=== PATIENT | female | born 1960 | race Caucasian/White ===

== ENCOUNTER 2017-02-27 10:15 | Inpatient (IN) | payer OTHER ==
[2017-02-27] MEDS ORDERED: ZITHROMAX INJ 500 MG VIAL 250 MG in NS 250 ML IV 250 ML IV SCH (12:20)
[2017-02-27] MEDS: DUONEB 0.5 MG/3 MG NEB SCH ×3 (12:27→20:55)
[2017-02-27 12:50] LABS: ABG BASE EXCESS 4.1 mmol/L (-2.0-2.0); ABG HCO3 29.2 mmol/L (22-26)
[2017-02-27 12:51] LABS: ABG ALLEN TEST POS
[2017-02-27] MEDS: SOLU-Medrol 40 MG VIAL IVP SCH ×2 (13:19→21:20)
[2017-02-27] MEDS: ROCEPHIN VIAL 1 GM 1 GM in NS 50 ML IV + SPIKE MINIBAG* 50 ML IV SCH (13:20)
[2017-02-27] MEDS: ZITHROMAX INJ 500 MG VIAL 250 MG in NS 250 ML IV 250 ML IV SCH (13:20)
[2017-02-27] MEDS: NS 500 ML IV 500 ML IV PRN (13:20)
[2017-02-27 13:22] LABS: BASOPHILS # (AUTO) 0.1 X10^3/uL (0.0-0.1); BASOPHILS % (AUTO) 0.3 % (0.2-1.0); EOSINOPHILS % (AUTO) 0.1 % (0.9-2.9); HEMATOCRIT 34.1 % (36.0-47.0); HEMOGLOBIN 11.8 g/dL (12.0-16.0); LYMPHOCYTES # (AUTO) 1.3 X10^3/uL (1.3-2.9); MEAN CORPUSCULAR HEMOGLOBIN 29.5 pg (27.0-34.0); MEAN CORPUSCULAR HGB CONC 34.5 g/dL (33.0-35.0); MEAN CORPUSCULAR VOLUME 85.7 fL (80.0-100.0); MEAN PLATELET VOLUME 8.2 fL (7.4-11.0); MONOCYTES # (AUTO) 1.2 x10^3/uL (0.3-0.8); MONOCYTES % (AUTO) 7.7 % (0.0-13.0); NEUTROPHILS # (AUTO) 13.5 x10^3/uL (2.2-4.8); NEUTROPHILS % (AUTO) 83.9 % (42.0-75.0); PLATELET COUNT 380 X10^3/uL (150.0-450.0); RED BLOOD COUNT 3.98 X10^6/uL (3.5-5.4); RED CELL DISTRIBUTION WIDTH 13.5 % (11.6-16.5); WHITE BLOOD COUNT 16.1 X10^3/uL (3.6-10.0)
[2017-02-27 13:30] LABS: BILIRUBIN,URINE NEGATIVE (NEGATIVE); BLOOD/HEMOGLOBIN,URINE NEGATIVE (NEGATIVE); GLUCOSE, URINE 2+ (NEGATIVE); KETONES,URINE 1+ (NEGATIVE); LEUKOCYTE ESTERASE ,URINE 1+ (NEGATIVE); NITRITES,URINE NEGATIVE (NEGATIVE); PROTEIN,URINE 2+ (NEGATIVE); UROBILINOGEN,URINE 1+ (NORMAL)
[2017-02-27 13:32] LABS: SODIUM 142 mmol/L (136-145)
[2017-02-27 13:39] LABS: BLOOD UREA NITROGEN 17 mg/dL (7-18); CALCIUM 9.4 mg/dL (8.5-10.1); CARBON DIOXIDE 28.3 mmol/L (21-32); CHLORIDE 102 mmol/L (98-107); COR NA(FOR HYPERGLY) 143 mmol/L (136-145); CREATININE 0.84 mg/dL (0.55-1.02); eGFR BLACK RACES > 60 (>60); eGFR NON BLACK RACES > 60 (>60)
[2017-02-27 13:49] LABS: APPEARANCE,URINE HAZY (CLEAR); COLOR,URINE YELLOW (YELLOW)
[2017-02-27 13:50] LABS: BACTERIA,URINE NEGATIVE /HPF (NEGATIVE); RBC,URINE RARE /HPF (NEGATIVE); SQUAMOUS EPITHELIAL CELL,UR MANY /HPF (NEGATIVE)
[2017-02-27 13:53] LABS: AMORPHOUS SEDIMENT,UR 2+ /HPF (NEGATIVE)
[2017-02-27 13:54] LABS: MUCUS,URINE FEW /HPF (NEGATIVE)
[2017-02-27 13:55] LABS: COARSE GRANULAR CASTS,URINE FEW /HPF (NEGATIVE)
--- NOTE | 2017-02-27 14:26 | RAD ---
HISTORY: Cough. Prior history of COPD, asthma and CHF. Study: Two-view chest Comparison: No priors Findings: Trachea is midline. The heart size is normal. There is hyperinflation of the lungs with increased int erstitial markings. Findings have the appearance of COPD. A component of very mild superimposed CHF i s not reliably excluded. No dense consolidation, pleural fluid or pneumothorax is seen. Osseous struc tures are intact. IMPRESSION: Findings having the appearance of COPD. I suspect a component of very mild superimposed CHF may be pr esent. Reported By:
[2017-02-27 14:46] VITALS: BMI 30.9
[2017-02-27] MEDS: TUSSIONEX PENNKINETIC SUSP PO PRN (16:40)
[2017-02-27] MEDS: REQUIP PO SCH (21:20)
[2017-02-27] MEDS: XANAX PO PRN (21:20)
[2017-02-28] MEDS: SOLU-Medrol 40 MG VIAL IVP SCH ×3 (05:01→21:24)
[2017-02-28] MEDS: XOPENEX 1.25 MG/3 ML NEBULE NEB SCH ×5 (05:15→20:39)
[2017-02-28] MEDS: Atrovent NEB TX 0.02% NEB SCH ×5 (05:15→20:39)
[2017-02-28 05:50] LABS: BASOPHILS # (AUTO) 0.1 X10^3/uL (0.0-0.1); BASOPHILS % (AUTO) 0.4 % (0.2-1.0); HEMATOCRIT 33.3 % (36.0-47.0); HEMOGLOBIN 11.3 g/dL (12.0-16.0); LYMPHOCYTES # (AUTO) 1.2 X10^3/uL (1.3-2.9); LYMPHOCYTES % (AUTO) 7.7 % (21.0-51.0); MEAN CORPUSCULAR HEMOGLOBIN 29.4 pg (27.0-34.0); MEAN CORPUSCULAR VOLUME 86.4 fL (80.0-100.0); MEAN PLATELET VOLUME 8.4 fL (7.4-11.0); MONOCYTES # (AUTO) 0.5 x10^3/uL (0.3-0.8); MONOCYTES % (AUTO) 3.2 % (0.0-13.0); NEUTROPHILS # (AUTO) 13.4 x10^3/uL (2.2-4.8); NEUTROPHILS % (AUTO) 88.7 % (42.0-75.0); PLATELET COUNT 391 X10^3/uL (150.0-450.0); RED BLOOD COUNT 3.86 X10^6/uL (3.5-5.4); RED CELL DISTRIBUTION WIDTH 13.5 % (11.6-16.5); WHITE BLOOD COUNT 15.1 X10^3/uL (3.6-10.0)
[2017-02-28 06:47] LABS: ALANINE AMINOTRANSFERASE 20 Units/L (12-78); ALBUMIN 3.2 g/dL (3.4-5.0); ALKALINE PHOSPHATASE 113 Units/L (46-116); ASPARTATE AMINO TRANSFERASE 15 Units/L (15-37); BLOOD UREA NITROGEN 15 mg/dL (7-18); CARBON DIOXIDE 27.7 mmol/L (21-32); CHLORIDE 103 mmol/L (98-107); COR CA(FOR HYPOALB) 9.6 mg/dL (8.5-10.1); COR NA(FOR HYPERGLY) 143 mmol/L (136-145); CREATININE 0.77 mg/dL (0.55-1.02); SODIUM 141 mmol/L (136-145); TOTAL PROTEIN 6.9 g/dL (6.4-8.2); eGFR BLACK RACES > 60 (>60); eGFR NON BLACK RACES > 60 (>60)
[2017-02-28] MEDS ORDERED: ROCEPHIN 1 GM IV PREMIX 1 GM/50 ML IV.SOLN. IV ONE (08:58)
[2017-02-28] MEDS: ROCEPHIN VIAL 1 GM 1 GM in NS 50 ML IV + SPIKE MINIBAG* 50 ML IV SCH (10:06)
[2017-02-28] MEDS: ZITHROMAX INJ 500 MG VIAL 250 MG in NS 250 ML IV 250 ML IV SCH (13:39)
[2017-02-28] MEDS ORDERED: PATIENT'S HOME MEDICATION (Benzonatate [Benzonatate] 1 CAP) PO PRN (13:40)
[2017-02-28] MEDS ORDERED: PATIENT'S HOME MEDICATION (Acetaminophen With Codeine [Tylenol W/Codeine #4 (300 Mg/60 Mg) PO SCH (13:45)
[2017-02-28] MEDS: TUSSIONEX PENNKINETIC SUSP PO PRN (13:49)
[2017-02-28] MEDS: XANAX PO PRN ×2 (13:49→21:36)
[2017-02-28] MEDS ORDERED: PATIENT'S HOME MEDICATION (Alprazolam [Alprazolam] 1 TAB) PO SCH (14:00)
[2017-02-28] MEDS: LIORESAL PO SCH ×2 (14:26→21:36)
[2017-02-28] MEDS ORDERED: DUONEB 0.5 MG/3 MG NEB SCH (17:00)
[2017-02-28] MEDS: TYLENOL #3 TAB (W/CODEINE) PO PRN (19:29)
[2017-02-28] MEDS: PULMICORT NEB TX 0.5 MG NEB SCH (20:39)
[2017-02-28] MEDS ORDERED: ROPINIROLE HCL PO SCH (21:00)
[2017-02-28] MEDS ORDERED: PATIENT'S HOME MEDICATION (Budesonide-Formoterol 2 PUFF) INH SCH (21:00)
[2017-02-28] MEDS: REQUIP PO SCH (21:36)
[2017-02-28] MEDS: VARENICLINE TARTRATE PO SCH (21:51)
[2017-02-28] MEDS ORDERED: XANAX PO SCH (22:00)
[2017-03-01] MEDS: XOPENEX 1.25 MG/3 ML NEBULE NEB SCH ×5 (04:10→21:08)
[2017-03-01] MEDS: TYLENOL #3 TAB (W/CODEINE) PO PRN ×3 (04:20→21:47)
[2017-03-01] MEDS ORDERED: MAALOX or MYLANTA PO PRN (04:28)
[2017-03-01] MEDS: XANAX PO PRN ×3 (05:43→21:58)
[2017-03-01] MEDS: LIORESAL PO SCH ×3 (05:43→21:46)
[2017-03-01] MEDS: SOLU-Medrol 40 MG VIAL IVP SCH ×3 (05:43→21:47)
[2017-03-01 06:09] LABS: BASOPHILS % (AUTO) 0.1 % (0.2-1.0); EOSINOPHILS % (AUTO) 0.1 % (0.9-2.9); HEMATOCRIT 32.1 % (36.0-47.0); HEMOGLOBIN 10.9 g/dL (12.0-16.0); LYMPHOCYTES # (AUTO) 1.2 X10^3/uL (1.3-2.9); LYMPHOCYTES % (AUTO) 8.3 % (21.0-51.0); MEAN CORPUSCULAR HEMOGLOBIN 29.3 pg (27.0-34.0); MEAN CORPUSCULAR VOLUME 86.3 fL (80.0-100.0); MEAN PLATELET VOLUME 8.4 fL (7.4-11.0); MONOCYTES # (AUTO) 0.7 x10^3/uL (0.3-0.8); MONOCYTES % (AUTO) 4.7 % (0.0-13.0); NEUTROPHILS # (AUTO) 12.7 x10^3/uL (2.2-4.8); NEUTROPHILS % (AUTO) 86.8 % (42.0-75.0); PLATELET COUNT 373 X10^3/uL (150.0-450.0); RED BLOOD COUNT 3.72 X10^6/uL (3.5-5.4); RED CELL DISTRIBUTION WIDTH 13.6 % (11.6-16.5); WHITE BLOOD COUNT 14.6 X10^3/uL (3.6-10.0)
[2017-03-01 06:45] LABS: ALANINE AMINOTRANSFERASE 20 Units/L (12-78); ALBUMIN 2.9 g/dL (3.4-5.0); ALKALINE PHOSPHATASE 102 Units/L (46-116); ASPARTATE AMINO TRANSFERASE 15 Units/L (15-37); BLOOD UREA NITROGEN 18 mg/dL (7-18); CALCIUM 8.9 mg/dL (8.5-10.1); CARBON DIOXIDE 29.8 mmol/L (21-32); CHLORIDE 103 mmol/L (98-107); COR CA(FOR HYPOALB) 9.8 mg/dL (8.5-10.1); COR NA(FOR HYPERGLY) 144 mmol/L (136-145); CREATININE 0.69 mg/dL (0.55-1.02); SODIUM 143 mmol/L (136-145); TOTAL PROTEIN 6.6 g/dL (6.4-8.2); eGFR BLACK RACES > 60 (>60); eGFR NON BLACK RACES > 60 (>60)
[2017-03-01 06:53] LABS: BAND NEUTROPHILS % 2 % (0-10); PLATELET MORPHOLOGY COMMENT NORMAL (NORMAL)
[2017-03-01] MEDS: CELEXA PO SCH (08:44)
[2017-03-01] MEDS: ROCEPHIN 1 GM IV PREMIX 1 GM/50 ML IV.SOLN. IV SCH (08:44)
[2017-03-01] MEDS: TOPROL XL PO SCH (08:44)
[2017-03-01] MEDS: PROTONIX TAB 40 MG PO SCH (08:44)
[2017-03-01] MEDS: TUSSIONEX PENNKINETIC SUSP PO PRN (08:45)
[2017-03-01] MEDS: VARENICLINE TARTRATE PO SCH ×2 (08:51→21:48)
[2017-03-01] MEDS: Atrovent NEB TX 0.02% NEB SCH ×4 (09:08→21:09)
[2017-03-01] MEDS: PULMICORT NEB TX 0.5 MG NEB SCH ×2 (09:08→21:08)
[2017-03-01] MEDS ORDERED: PULMICORT NEB TX 0.5 MG NEB SCH (13:30)
[2017-03-01] MEDS: ZITHROMAX INJ 500 MG VIAL 250 MG in NS 250 ML IV 250 ML IV SCH (14:00)
[2017-03-01] MEDS: BROVANA IN SCH ×2 (14:52→21:08)
[2017-03-01] MEDS: REQUIP PO SCH (21:46)
[2017-03-02] MEDS: XOPENEX 1.25 MG/3 ML NEBULE NEB SCH ×5 (04:05→20:31)
[2017-03-02] MEDS: Atrovent NEB TX 0.02% NEB SCH ×5 (04:05→20:31)
[2017-03-02 05:41] LABS: ALANINE AMINOTRANSFERASE 21 Units/L (12-78); ALBUMIN 2.7 g/dL (3.4-5.0); ALKALINE PHOSPHATASE 107 Units/L (46-116); ASPARTATE AMINO TRANSFERASE 10 Units/L (15-37); BLOOD UREA NITROGEN 20 mg/dL (7-18); CALCIUM 8.5 mg/dL (8.5-10.1); CARBON DIOXIDE 29.5 mmol/L (21-32); CHLORIDE 106 mmol/L (98-107); COR CA(FOR HYPOALB) 9.5 mg/dL (8.5-10.1); COR NA(FOR HYPERGLY) 146 mmol/L (136-145); CREATININE 0.65 mg/dL (0.55-1.02); SODIUM 144 mmol/L (136-145); TOTAL PROTEIN 6.1 g/dL (6.4-8.2); eGFR BLACK RACES > 60 (>60); eGFR NON BLACK RACES > 60 (>60)
[2017-03-02 05:43] LABS: BASOPHILS % (AUTO) 0.2 % (0.2-1.0); EOSINOPHILS % (AUTO) 0.1 % (0.9-2.9); HEMATOCRIT 31.8 % (36.0-47.0); HEMOGLOBIN 10.7 g/dL (12.0-16.0); LYMPHOCYTES # (AUTO) 1.3 X10^3/uL (1.3-2.9); LYMPHOCYTES % (AUTO) 8.7 % (21.0-51.0); MEAN CORPUSCULAR HEMOGLOBIN 29.4 pg (27.0-34.0); MEAN CORPUSCULAR HGB CONC 33.8 g/dL (33.0-35.0); MEAN CORPUSCULAR VOLUME 87.2 fL (80.0-100.0); MEAN PLATELET VOLUME 8.3 fL (7.4-11.0); MONOCYTES # (AUTO) 1.2 x10^3/uL (0.3-0.8); NEUTROPHILS # (AUTO) 12.1 x10^3/uL (2.2-4.8); PLATELET COUNT 367 X10^3/uL (150.0-450.0); RED BLOOD COUNT 3.65 X10^6/uL (3.5-5.4); RED CELL DISTRIBUTION WIDTH 13.7 % (11.6-16.5); WHITE BLOOD COUNT 14.6 X10^3/uL (3.6-10.0)
[2017-03-02] MEDS: LIORESAL PO SCH ×3 (05:56→21:59)
[2017-03-02] MEDS: XANAX PO PRN ×3 (05:56→22:02)
[2017-03-02] MEDS: SOLU-Medrol 40 MG VIAL IVP SCH (05:56)
[2017-03-02 06:31] LABS: BAND NEUTROPHILS % 2 % (0-10)
[2017-03-02 06:32] LABS: PLATELET MORPHOLOGY COMMENT NORMAL (NORMAL)
[2017-03-02] MEDS: TESSALON PERLES PO PRN ×2 (07:49→15:04)
[2017-03-02] MEDS: ROCEPHIN 1 GM IV PREMIX 1 GM/50 ML IV.SOLN. IV SCH (08:00)
[2017-03-02] MEDS: PROTONIX TAB 40 MG PO SCH (08:00)
[2017-03-02] MEDS: TOPROL XL PO SCH (08:00)
[2017-03-02] MEDS: CELEXA PO SCH (08:00)
[2017-03-02] MEDS: BROVANA IN SCH ×2 (09:19→20:31)
[2017-03-02] MEDS: PULMICORT NEB TX 0.5 MG NEB SCH ×2 (09:19→20:30)
[2017-03-02] MEDS: VARENICLINE TARTRATE PO SCH ×2 (10:12→21:59)
[2017-03-02] MEDS: ZITHROMAX INJ 500 MG VIAL 250 MG in NS 250 ML IV 250 ML IV SCH (14:14)
[2017-03-02] MEDS: NYSTATIN SUSP PO SCH (21:58)
[2017-03-02] MEDS: REQUIP PO SCH (21:59)
[2017-03-02] MEDS: TUSSIONEX PENNKINETIC SUSP PO PRN (23:02)
[2017-03-03] MEDS: LIORESAL PO SCH ×3 (06:15→21:12)
[2017-03-03 07:11] LABS: BLOOD UREA NITROGEN 21 mg/dL (7-18); CALCIUM 8.3 mg/dL (8.5-10.1); CARBON DIOXIDE 31.7 mmol/L (21-32); CHLORIDE 104 mmol/L (98-107); CREATININE 0.77 mg/dL (0.55-1.02); SODIUM 145 mmol/L (136-145); eGFR BLACK RACES > 60 (>60); eGFR NON BLACK RACES > 60 (>60)
[2017-03-03 07:26] LABS: BASOPHILS # (AUTO) 0.1 X10^3/uL (0.0-0.1); BASOPHILS % (AUTO) 0.3 % (0.2-1.0); EOSINOPHILS # (AUTO) 0.2 x10^3/uL (0.0-0.2); HEMATOCRIT 31.6 % (36.0-47.0); HEMOGLOBIN 10.7 g/dL (12.0-16.0); LYMPHOCYTES # (AUTO) 3.2 X10^3/uL (1.3-2.9); MEAN CORPUSCULAR HEMOGLOBIN 29.4 pg (27.0-34.0); MEAN CORPUSCULAR HGB CONC 33.7 g/dL (33.0-35.0); MEAN CORPUSCULAR VOLUME 87.1 fL (80.0-100.0); MEAN PLATELET VOLUME 8.1 fL (7.4-11.0); MONOCYTES # (AUTO) 1.9 x10^3/uL (0.3-0.8); MONOCYTES % (AUTO) 11.1 % (0.0-13.0); NEUTROPHILS # (AUTO) 11.5 x10^3/uL (2.2-4.8); NEUTROPHILS % (AUTO) 68.6 % (42.0-75.0); PLATELET COUNT 348 X10^3/uL (150.0-450.0); RED BLOOD COUNT 3.63 X10^6/uL (3.5-5.4); RED CELL DISTRIBUTION WIDTH 13.9 % (11.6-16.5); WHITE BLOOD COUNT 16.7 X10^3/uL (3.6-10.0)
[2017-03-03 08:05] LABS: BAND NEUTROPHILS % 1 % (0-10)
[2017-03-03 08:06] LABS: PLATELET MORPHOLOGY COMMENT NORMAL (NORMAL)
[2017-03-03 08:29] LABS: ALANINE AMINOTRANSFERASE 39 Units/L (12-78); ALBUMIN 2.8 g/dL (3.4-5.0); ALKALINE PHOSPHATASE 95 Units/L (46-116); ASPARTATE AMINO TRANSFERASE 27 Units/L (15-37); COR CA(FOR HYPOALB) 9.3 mg/dL (8.5-10.1); TOTAL PROTEIN 5.7 g/dL (6.4-8.2)
[2017-03-03] MEDS: XOPENEX 1.25 MG/3 ML NEBULE NEB SCH ×4 (08:55→21:33)
[2017-03-03] MEDS: BROVANA IN SCH ×2 (08:55→21:33)
[2017-03-03] MEDS: PULMICORT NEB TX 0.5 MG NEB SCH ×2 (08:55→21:33)
[2017-03-03] MEDS: Atrovent NEB TX 0.02% NEB SCH ×4 (08:56→21:33)
[2017-03-03] MEDS: PROTONIX TAB 40 MG PO SCH (09:17)
[2017-03-03] MEDS: TOPROL XL PO SCH (09:17)
[2017-03-03] MEDS: CELEXA PO SCH (09:17)
[2017-03-03] MEDS: ROCEPHIN 1 GM IV PREMIX 1 GM/50 ML IV.SOLN. IV SCH (09:17)
[2017-03-03] MEDS: NYSTATIN SUSP PO SCH ×4 (09:17→21:12)
[2017-03-03] MEDS: VARENICLINE TARTRATE PO SCH ×2 (09:30→21:12)
[2017-03-03] MEDS: ZITHROMAX INJ 500 MG VIAL 250 MG in NS 250 ML IV 250 ML IV SCH (15:35)
[2017-03-03] MEDS: XANAX PO PRN (15:37)
[2017-03-03] MEDS ORDERED: MAG-OX TAB PO PRN (17:36)
[2017-03-03] MEDS ORDERED: POTASSIUM CHLORIDE LIQ 20 MEQ UDC PO PRN (17:36)
[2017-03-03] MEDS ORDERED: K-RIDER 10 MEQ/NS 100 ML 10 MEQ/100 ML BAG IV PRN (17:36)
[2017-03-03] MEDS ORDERED: MAGNESIUM SULFATE 1 GM/100 mL PREMIX 1 GM/100 ML BAG IV PRN (17:36)
[2017-03-03] MEDS ORDERED: K-LYTE EFFERVESCENT PO PRN (17:36)
[2017-03-03] MEDS ORDERED: POTASSIUM CHL 40 MEQ/NS 0.45% 500 ML IV PRN ×2 (17:49→18:00)
[2017-03-03] MEDS ORDERED: POTASSIUM CHL 60 MEQ/NS 0.45% 500 ML IV PRN (17:49)
[2017-03-03] MEDS ORDERED: POTASSIUM CHL 60 MEQ/NS 0.45% 500 ML IV NR (18:00)
[2017-03-03] MEDS: REQUIP PO SCH (21:11)
[2017-03-04 04:33] LABS: BASOPHILS # (AUTO) 0.1 X10^3/uL (0.0-0.1); BASOPHILS % (AUTO) 0.4 % (0.2-1.0); EOSINOPHILS # (AUTO) 1.1 x10^3/uL (0.0-0.2); EOSINOPHILS % (AUTO) 7.3 % (0.9-2.9); HEMATOCRIT 30.9 % (36.0-47.0); HEMOGLOBIN 10.4 g/dL (12.0-16.0); LYMPHOCYTES # (AUTO) 3.5 X10^3/uL (1.3-2.9); LYMPHOCYTES % (AUTO) 23.4 % (21.0-51.0); MEAN CORPUSCULAR HEMOGLOBIN 29.5 pg (27.0-34.0); MEAN CORPUSCULAR HGB CONC 33.9 g/dL (33.0-35.0); MONOCYTES # (AUTO) 1.5 x10^3/uL (0.3-0.8); MONOCYTES % (AUTO) 9.8 % (0.0-13.0); NEUTROPHILS # (AUTO) 8.7 x10^3/uL (2.2-4.8); NEUTROPHILS % (AUTO) 59.1 % (42.0-75.0); PLATELET COUNT 337 X10^3/uL (150.0-450.0); RED BLOOD COUNT 3.55 X10^6/uL (3.5-5.4); RED CELL DISTRIBUTION WIDTH 13.7 % (11.6-16.5); WHITE BLOOD COUNT 14.8 X10^3/uL (3.6-10.0)
[2017-03-04 04:51] LABS: ALANINE AMINOTRANSFERASE 44 Units/L (12-78); ALBUMIN 2.6 g/dL (3.4-5.0); ALKALINE PHOSPHATASE 101 Units/L (46-116); ASPARTATE AMINO TRANSFERASE 30 Units/L (15-37); BLOOD UREA NITROGEN 18 mg/dL (7-18); CALCIUM 7.2 mg/dL (8.5-10.1); CARBON DIOXIDE 32.9 mmol/L (21-32); CHLORIDE 106 mmol/L (98-107); COR CA(FOR HYPOALB) 8.3 mg/dL (8.5-10.1); CREATININE 0.84 mg/dL (0.55-1.02); SODIUM 146 mmol/L (136-145); TOTAL PROTEIN 5.5 g/dL (6.4-8.2); eGFR BLACK RACES > 60 (>60); eGFR NON BLACK RACES > 60 (>60)
[2017-03-04] MEDS: LIORESAL PO SCH ×3 (05:42→21:27)
[2017-03-04] MEDS: TUSSIONEX PENNKINETIC SUSP PO PRN (05:42)
[2017-03-04 06:09] LABS: BAND NEUTROPHILS % 3 % (0-10)
[2017-03-04 06:10] LABS: PLATELET MORPHOLOGY COMMENT NORMAL (NORMAL)
[2017-03-04] MEDS: XOPENEX 1.25 MG/3 ML NEBULE NEB SCH ×5 (06:10→20:38)
[2017-03-04] MEDS: Atrovent NEB TX 0.02% NEB SCH ×5 (06:10→20:38)
--- NOTE | 2017-03-04 07:02 | RAD ---
Examination: Portable AP chest History: COPD Comparison reference: 02/27/2017 Findings: Continued normal heart size with slight pulmonary hyperaeration. The pulmonary vascularity is now within normal limits. There is no evidence for inflammatory infiltrate, pulmonary edema or ple ural fluid. Impression: No acute process now identified. Reported By:
[2017-03-04] MEDS: BROVANA IN SCH ×2 (08:19→20:38)
[2017-03-04] MEDS: PULMICORT NEB TX 0.5 MG NEB SCH ×2 (08:20→20:38)
[2017-03-04] MEDS: CELEXA PO SCH (10:03)
[2017-03-04] MEDS: ROCEPHIN 1 GM IV PREMIX 1 GM/50 ML IV.SOLN. IV SCH (10:03)
[2017-03-04] MEDS: NYSTATIN SUSP PO SCH ×4 (10:03→21:27)
[2017-03-04] MEDS: TOPROL XL PO SCH (10:04)
[2017-03-04] MEDS: VARENICLINE TARTRATE PO SCH ×2 (10:04→21:27)
[2017-03-04] MEDS: PROTONIX TAB 40 MG PO SCH (10:04)
[2017-03-04] MEDS: ZITHROMAX INJ 500 MG VIAL 250 MG in NS 250 ML IV 250 ML IV SCH (13:30)
[2017-03-04 14:21] LABS: ABG BASE EXCESS 11.6 mmol/L (-2.0-2.0); ABG HCO3 37.1 mmol/L (22-26)
[2017-03-04 14:22] LABS: ABG ALLEN TEST POS; FRACTIONATED INSPIRED OXYGEN 21
[2017-03-04] MEDS: REQUIP PO SCH (21:27)
[2017-03-05 04:26] LABS: BASOPHILS % (AUTO) 0.2 % (0.2-1.0); EOSINOPHILS # (AUTO) 1.2 x10^3/uL (0.0-0.2); EOSINOPHILS % (AUTO) 7.7 % (0.9-2.9); HEMATOCRIT 33.2 % (36.0-47.0); HEMOGLOBIN 11.2 g/dL (12.0-16.0); LYMPHOCYTES # (AUTO) 2.8 X10^3/uL (1.3-2.9); LYMPHOCYTES % (AUTO) 18.5 % (21.0-51.0); MEAN CORPUSCULAR HEMOGLOBIN 29.2 pg (27.0-34.0); MEAN CORPUSCULAR HGB CONC 33.6 g/dL (33.0-35.0); MEAN CORPUSCULAR VOLUME 87.1 fL (80.0-100.0); MONOCYTES # (AUTO) 1.6 x10^3/uL (0.3-0.8); MONOCYTES % (AUTO) 10.3 % (0.0-13.0); NEUTROPHILS # (AUTO) 9.7 x10^3/uL (2.2-4.8); NEUTROPHILS % (AUTO) 63.3 % (42.0-75.0); PLATELET COUNT 330 X10^3/uL (150.0-450.0); RED BLOOD COUNT 3.82 X10^6/uL (3.5-5.4); RED CELL DISTRIBUTION WIDTH 14.1 % (11.6-16.5); WHITE BLOOD COUNT 15.3 X10^3/uL (3.6-10.0)
[2017-03-05 04:30] LABS: BLOOD UREA NITROGEN 13 mg/dL (7-18); CALCIUM 8.5 mg/dL (8.5-10.1); CARBON DIOXIDE 38.1 mmol/L (21-32); CHLORIDE 99 mmol/L (98-107); CREATININE 0.75 mg/dL (0.55-1.02); SODIUM 140 mmol/L (136-145); eGFR BLACK RACES > 60 (>60); eGFR NON BLACK RACES > 60 (>60)
[2017-03-05 04:56] LABS: BAND NEUTROPHILS % 6 % (0-10); PLATELET MORPHOLOGY COMMENT NORMAL (NORMAL)
[2017-03-05 05:01] LABS: ALANINE AMINOTRANSFERASE 152 Units/L (12-78); ALBUMIN 2.8 g/dL (3.4-5.0); ALKALINE PHOSPHATASE 103 Units/L (46-116); ASPARTATE AMINO TRANSFERASE 99 Units/L (15-37); COR CA(FOR HYPOALB) 9.5 mg/dL (8.5-10.1); TOTAL PROTEIN 6.1 g/dL (6.4-8.2)
[2017-03-05] MEDS: Atrovent NEB TX 0.02% NEB SCH ×5 (05:03→20:39)
[2017-03-05] MEDS: XOPENEX 1.25 MG/3 ML NEBULE NEB SCH ×5 (05:03→20:39)
[2017-03-05] MEDS: LIORESAL PO SCH ×3 (05:26→21:58)
[2017-03-05] MEDS: TYLENOL #3 TAB (W/CODEINE) PO PRN ×2 (07:38→20:38)
--- NOTE | 2017-03-05 07:54 | CT ---
HISTORY: Shortness of breath Study: CTA chest with contrast for pulmonary embolus Comparison: None Technique: Axial post-contrast images with coronal, sagittal, and three-dimensional maximum intensity projection images obtained in evaluated. Dose reduction procedures were used with mA/kv adjusted for body size. Findings: There is no evidence for acute pulmonary thromboembolic disease. Examination of the mediastinum demon strated no evidence for mediastinal masses, lymphadenopathy, or hilar lymphadenopathy. Mild calcific atherosclerotic changes present in an otherwise normal thoracic aorta. No pleural effusions are ident ified. No chest wall or axillary abnormality is identified. Those portions of the upper abdominal org ans visualized were within normal limits. Examination of the lung hutchinson demonstrate extensive change s of centrilobular emphysema bilaterally involving the upper lobes more prominently in the lower lobe s. Mild peripheral interstitial lung change is identified. No nodules, masses, alveolar infiltrates, areas of consolidation, peribronchial thickening, or bronchiectasis is identified. IMPRESSION: No evidence for acute pulmonary thromboembolic disease Relatively severe centrilobular emphysema with some associated peripheral interstitial lung changes, chronic Reported By:
[2017-03-05] MEDS: CELEXA PO SCH (08:41)
[2017-03-05] MEDS: XANAX PO PRN ×2 (08:41→14:29)
[2017-03-05] MEDS: PROTONIX TAB 40 MG PO SCH (08:42)
[2017-03-05] MEDS: NYSTATIN SUSP PO SCH ×4 (08:42→20:37)
[2017-03-05] MEDS: ROCEPHIN 1 GM IV PREMIX 1 GM/50 ML IV.SOLN. IV SCH (08:42)
[2017-03-05] MEDS: TOPROL XL PO SCH (08:42)
[2017-03-05] MEDS: VARENICLINE TARTRATE PO SCH ×2 (08:44→20:41)
[2017-03-05] MEDS: PULMICORT NEB TX 0.5 MG NEB SCH ×2 (09:50→20:39)
[2017-03-05] MEDS: BROVANA IN SCH ×2 (09:50→20:39)
[2017-03-05] MEDS: ZITHROMAX INJ 500 MG VIAL 250 MG in NS 250 ML IV 250 ML IV SCH (14:29)
[2017-03-05] MEDS: REQUIP PO SCH (20:37)
[2017-03-05] MEDS: TUSSIONEX PENNKINETIC SUSP PO PRN (20:38)
[2017-03-06] MEDS: NS 500 ML IV 500 ML IV PRN (04:31)
[2017-03-06 04:47] LABS: BASOPHILS # (AUTO) 0.1 X10^3/uL (0.0-0.1); BASOPHILS % (AUTO) 0.4 % (0.2-1.0); EOSINOPHILS # (AUTO) 1.1 x10^3/uL (0.0-0.2); EOSINOPHILS % (AUTO) 7.6 % (0.9-2.9); HEMATOCRIT 34.2 % (36.0-47.0); HEMOGLOBIN 11.4 g/dL (12.0-16.0); LYMPHOCYTES # (AUTO) 2.4 X10^3/uL (1.3-2.9); LYMPHOCYTES % (AUTO) 16.1 % (21.0-51.0); MEAN CORPUSCULAR HGB CONC 33.3 g/dL (33.0-35.0); MEAN PLATELET VOLUME 8.1 fL (7.4-11.0); MONOCYTES # (AUTO) 1.5 x10^3/uL (0.3-0.8); MONOCYTES % (AUTO) 9.9 % (0.0-13.0); NEUTROPHILS # (AUTO) 9.8 x10^3/uL (2.2-4.8); PLATELET COUNT 309 X10^3/uL (150.0-450.0); RED BLOOD COUNT 3.93 X10^6/uL (3.5-5.4); RED CELL DISTRIBUTION WIDTH 13.9 % (11.6-16.5); WHITE BLOOD COUNT 14.9 X10^3/uL (3.6-10.0)
[2017-03-06 04:58] LABS: ALANINE AMINOTRANSFERASE 111 Units/L (12-78); ALBUMIN 2.8 g/dL (3.4-5.0); ALKALINE PHOSPHATASE 99 Units/L (46-116); ASPARTATE AMINO TRANSFERASE 45 Units/L (15-37); BLOOD UREA NITROGEN 12 mg/dL (7-18); CALCIUM 8.5 mg/dL (8.5-10.1); CARBON DIOXIDE 33.6 mmol/L (21-32); CHLORIDE 97 mmol/L (98-107); COR CA(FOR HYPOALB) 9.5 mg/dL (8.5-10.1); COR NA(FOR HYPERGLY) 138 mmol/L (136-145); CREATININE 0.77 mg/dL (0.55-1.02); SODIUM 138 mmol/L (136-145); TOTAL PROTEIN 6.4 g/dL (6.4-8.2); eGFR BLACK RACES > 60 (>60); eGFR NON BLACK RACES > 60 (>60)
[2017-03-06] MEDS: XOPENEX 1.25 MG/3 ML NEBULE NEB SCH ×4 (05:10→16:08)
[2017-03-06] MEDS: Atrovent NEB TX 0.02% NEB SCH ×4 (05:10→16:08)
[2017-03-06] MEDS: LIORESAL PO SCH ×2 (05:44→14:13)
[2017-03-06] MEDS: PULMICORT NEB TX 0.5 MG NEB SCH (08:38)
[2017-03-06] MEDS: BROVANA IN SCH (08:38)
[2017-03-06] MEDS: TYLENOL #3 TAB (W/CODEINE) PO PRN (09:18)
[2017-03-06] MEDS: CELEXA PO SCH (09:18)
[2017-03-06] MEDS: PROTONIX TAB 40 MG PO SCH (09:19)
[2017-03-06] MEDS: ROCEPHIN 1 GM IV PREMIX 1 GM/50 ML IV.SOLN. IV SCH (09:19)
[2017-03-06] MEDS: TESSALON PERLES PO PRN (09:19)
[2017-03-06] MEDS: TUSSIONEX PENNKINETIC SUSP PO PRN (09:19)
[2017-03-06] MEDS: TOPROL XL PO SCH (09:19)
[2017-03-06] MEDS: NYSTATIN SUSP PO SCH ×2 (09:19→14:12)
[2017-03-06] MEDS: VARENICLINE TARTRATE PO SCH (09:20)
[2017-03-06] MEDS: XANAX PO PRN (09:22)
[2017-03-06] MEDS: ZITHROMAX INJ 500 MG VIAL 250 MG in NS 250 ML IV 250 ML IV SCH (14:13)
[2017-03-06 16:28] VITALS: BP 104/56
== END 2017-03-06 17:00 | disposition home or self-care (01) | DRG 192 ==
LOC: UNDOADMIN 10:15 → MED/SURG 10:15
PROVIDERS: ADMIT Internal Medicine; ATTEND Internal Medicine
DX: J44.1 Chronic obstructive pulmonary disease with (acute) exacerbation (principal); J20.8 Acute bronchitis due to other specified organisms; R06.02 Shortness of breath; F41.8 Other specified anxiety disorders; I50.9 Heart failure, unspecified; R26.89 Other abnormalities of gait and mobility
CPT/HCPCS: 36415; 36600; 71010; 71020; 71275; 80048; 80053; 81001; 82803; 83735; 84132; 85025; 87040; 87070; 87086; 87205; 93005; 93010; 94640; 94760; 99231; A4222; J0456; J0696; J2920; J7620; J7626; J7644